=== PATIENT | male | born 1990 | race Caucasian/White ===

== ENCOUNTER 2019-07-15 15:34 | Emergency (ER) | payer BC ==
[2019-07-15] MEDS ORDERED: Lidocaine 2% with EPINEPHrine 1:200,000 20 ML SDV ONE (16:05)
[2019-07-15] MEDS ORDERED: Bacitracin/Neomycin/Polymyxin B Oint 0.9 GM U/D Packet ONE (16:27)
[2019-07-15] MEDS ORDERED: Lidocaine 2% with EPINEPHrine 1:200,000 20 ML SDV SUBCUT SCH (16:30)
[2019-07-15] MEDS ORDERED: Bacitracin/Neomycin/Polymyxin B Oint 28.4 GM Tube TOP SCH (16:30)
[2019-07-15] MEDS ORDERED: Diphtheria,Pertussis(Acell),Tetanus Vaccine 0.5 ML SDV IM ONE (16:30)
--- NOTE | 2019-07-15 16:49 | EDM.PDOC ---
ED HPI GENERAL MEDICAL PROBLEM - General Chief Complaint: Upper Extremity Injury/Pain Stated Complaint: right thumb cut Time Seen by Provider: 07/15/19 15:50 Source of Information: Reports: Patient History Limitations: Reports: No Limitations - History of Present Illness INITIAL COMMENTS - FREE TEXT/NARRATIVE: 28yo LHD male presents with laceration to right thumb. Was plumbing a shower at home and cut on copper piping. C/o only mild numbness and bleeding. No weakness with extension of flexion of right thumb. Onset: Today Duration: Minutes:, Improving Location: Reports: Upper Extremity, Right (thumb) Quality: Reports: Throbbing Severity: Mild Improves with: Reports: Other (compressive wrap) Worsens with: Reports: None Context: Reports: Trauma Associated Symptoms: Reports: No Other Symptoms - Related Data Allergies Allergy/AdvReac Type Severity Reaction Status Date / Time No Known Drug Allergies Allergy Cannot Verified 07/15/19 15:49 Remember Home Meds: Home Meds . [No Known Home Meds] 07/15/19 [History] Past Medical History - Past Health History Medical/Surgical History: Denies Medical/Surgical History - Infectious Disease History Infectious Disease History: Reports: Chicken Pox - Past Surgical History HEENT Surgical History: Reports: Other (See Below) Other HEENT Surgeries/Procedures: jaw surgery Social & Family History - Tobacco Use Smoking Status *Q: Never Smoker - Caffeine Use Caffeine Use: Reports: Coffee, Energy Drinks, Soda, Tea - Recreational Drug Use Recreational Drug Use: No Review of Systems - Review of Systems Review Of Systems: Comprehensive ROS is negative, except as noted in HPI. ED EXAM, GENERAL - Physical Exam Exam: See Below Exam Limited By: No Limitations General Appearance: Alert, WD/WN, No Apparent Distress Ears: Hearing Grossly Normal Nose: Normal Inspection Throat/Mouth: Normal Voice Head: Atraumatic Neck: Normal Inspection Extremities: Normal Inspection. No: Limited Range of Motion Neurological: CN II-XII Intact, Sensory/Motor Deficit (mild numbness radial side right thumb) Psychiatric: Normal Affect Skin Exam: Warm, Dry, Intact, Normal Color, No Rash ED TRAUMA EXTREMITY PROCEDURES - Laceration/Wound Repair Right Digit - 1st (Thumb) Lac/Wound Length In cm: 2 Appearance: Subcutaneous, Mildly Contaminated Distal NVT: No Tendon Injury, Other (numbness radial side right thumb) Local Anesthesia - Lidocaine (Xylocaine): 2% with EPI Local Anesthetic Volume: 5cc Skin Prep: Chlorhexidine (Hibiciens), Providone-Iodine (Betadine), Sterile Drape Saline Irrigation (cc's): 10 Exploration/Debridement/Repair: Wound Explored, In a Bloodless Field, Minimal Debridement Closed With: Sutures Suture Size: 4-0 # of Sutures: 5 Suture Type: Nylon, Mattress Sterile Dressing Applied: Provider Tetanus Status Addressed: Yes Complications: No Course - Vital Signs Last Recorded V/S: Last Vital Signs Temp 97.4 F 07/15/19 15:47 Pulse 86 07/15/19 15:47 Resp 18 07/15/19 15:47 BP 139/74 07/15/19 15:47 Pulse Ox 96 07/15/19 15:47 - Orders/Labs/Meds Orders: Active Orders 24 hr Category Date Time Status cephALEXin [Keflex] Med 07/15/19 17:00 Ordered 1,000 mg PO Q6HR Medication Orders Cephalexin (Keflex) 1,000 mg PO Q6HR WILD Meds: Medications Generic Name Dose Route Start Last Admin Trade Name Freq PRN Reason Stop Dose Admin Cephalexin 1,000 mg 07/15/19 17:00 Keflex PO Q6HR WILD Discontinued Medications Generic Name Dose Route Start Last Admin Trade Name Freq PRN Reason Stop Dose Admin Lidocaine/Epinephrine Confirm 07/15/19 16:05 Xylocaine-Mpf 2%-Epi 1:200,000 Administered 07/15/19 16:06 Dose 20 ml .ROUTE .STK-MED ONE Neomycin/Polymyxin/Bacitracin Confirm 07/15/19 16:27 Triple Antibiotic Oint Administered 07/15/19 16:28 Dose 1 each .ROUTE .STK-MED ONE - Re-Assessments/Exams Free Text/Narrative Re-Assessment/Exam: 07/15/19 16:53 tolerated procedural without difficulty. Departure - Departure Time of Disposition: 16:54 Disposition: Home, Self-Care 01 Condition: Good Clinical Impression: Laceration of right thumb Qualifiers: Encounter type: initial encounter Damage to nail status: with damage Foreign body presence: with foreign body Qualified Code(s): S61.121A - Laceration with foreign body of right thumb with damage to nail, initial encounter - Discharge Information Instructions: Laceration Care, Adult, [id number] Referrals: PCP,Not In Area [Primary Care Provider] - Forms: ED Department Discharge Sepsis Event Note - Evaluation Sepsis Screening Result: No Definite Risk - Focused Exam Vital Signs: Vital Signs Temp Pulse Resp BP Pulse Ox 07/15/19 15:47 97.4 F 86 18 139/74 96 Date Exam was Performed: 07/15/19 Time Exam was Performed: 16:44 - My Orders Last 24 Hours: My Active Orders 07/15/19 17:00 cephALEXin [Keflex] 1,000 mg PO Q6HR - Assessment/Plan Last 24 Hours: My Active Orders 07/15/19 17:00 cephALEXin [Keflex] 1,000 mg PO Q6HR Assessment:: laceration right thumb Plan: 1. Keep dressing clean, dry, intact. 2. dressing change in 3 days. Cover incision with bandaid. 3. keflex 500mg TID for 3 days. 4. Suture removal in 10-14days. 5. f/u with primary care if redness, drainage, increase pain occurs.
[2019-07-15] MEDS ORDERED: Cephalexin 250 MG Cap PO SCH (17:00)
== END 2019-07-15 17:18 | disposition home or self-care (01) ==
LOC: KA.ED 15:34
DX: S61.121A Laceration with foreign body of right thumb with damage to nail, initial encounter (principal); Z23 Encounter for immunization; W26.8XXA Contact with other sharp object(s), not elsewhere classified, initial encounter
CPT/HCPCS: 12001; 90471; 90715; 99282; A9270